=== PATIENT | female | born 1975 | race Caucasian/White ===

== ENCOUNTER 2018-03-06 00:23 | Inpatient (IN) | payer BC ==
[2018-03-06] VITALS (12 sets, daily range): BP systolic 130–161; BP diastolic 79–95
[~2018-03-06] VITALS: Ht 165.1 cm; Wt 87.0 kg
[~2018-03-06 00:23] MED LIST: ALBU8.5H8 IH; GUAI1TBM19 PO
[2018-03-06] MEDS ORDERED: normal saline 1000ML IV soln IVB ONE (00:35)
[2018-03-06] MEDS ORDERED: ketorolac trometh. 30mg/ml inj. IV ONE (01:15)
[2018-03-06 01:17] LABS: CLARITY,URINE CLOUDY (Clear); COLOR,URINE YELLOW (Yellow); GLUCOSE, URINE NEGATIVE (Neg); KETONES,URINE TRACE mg/dl (Neg); LEUKOCYTE ESTERASE ,URINE MODERATE (Neg); NITRITES, URINE NEGATIVE (Neg); OCCULT BLOOD,URINE MODERATE (Neg); PROTEIN,URINE 30 mg/dl (Neg); UROBILINOGEN,URINE 0.2 E.U/dL (0.2-1.0)
[2018-03-06 01:21] LABS: URINE HCG NEGATIVE (NEG)
[2018-03-06 01:22] LABS: UA COLLECTION TYPE VOIDED
[2018-03-06 01:51] LABS: ALANINE AMINOTRANSFERASE 21 U/L (12-78); ALBUMIN 3.6 G/DL (3.4-5.0); ALBUMIN/GLOBULIN RATIO 0.8 (1.1-1.5); ALKALINE PHOSPHATASE 77 IU/L (46-116); ANION GAP 9 (8-16); ASPARTATE AMINO TRANSFERASE 14 U/L (10-37); BILIRUBIN,TOTAL 0.5 MG/DL (0.1-1.0); BLOOD UREA NITROGEN 12 MG/DL (7-18); BUN/CREATININE RATIO 14.8 (6.6-38.0); CALCIUM 8.8 MG/DL (8.5-10.1); CHLORIDE 105 MMOL/L (99-107); CREATININE 0.81 MG/DL (0.40-0.90); GLUCOSE 124 MG/DL (70-104); LIPASE 79 U/L (73-393); POTASSIUM 3.5 MMOL/L (3.5-5.1); SODIUM 141 MMOL/L (135-145); TOTAL CARBON DIOXIDE 26.9 MMOL/L (24-32); eGFR 78 ML/MIN
[2018-03-06 02:50] LABS: BASOPHILS # (AUTO) 0.1 X10'3 (0-0.2); BASOPHILS % (AUTO) 0.5 % (0-1); EOSINOPHILS % (AUTO) 0.1 % (0-6); HEMATOCRIT 39.6 % (35.0-45.0); HEMOGLOBIN 14.1 g/dl (12.0-16.0); LYMPHOCYTES # (AUTO) 0.9 X10'3 (1.1-4.8); LYMPHOCYTES % (AUTO) 5.4 % (21-51); MEAN CORPUSCULAR HEMOGLOBIN 32.7 PG (27.0-31.0); MEAN CORPUSCULAR HGB CONC 35.5 % (33.0-36.5); MEAN CORPUSCULAR VOLUME 92.1 FL (78-98); MEAN PLATELET VOLUME 9.1 FL (7.4-10.4); MONOCYTES # (AUTO) 0.5 X10'3 (0-0.9); MONOCYTES % (AUTO) 2.7 % (2-12); NEUTROPHILS # (AUTO) 15.5 X10'3 (1.8-7.7); NEUTROPHILS % (AUTO) 91.3 % (42-75); PLATELET COUNT 147 X10'3 (140-440); RED CELL DISTRIBUTION WIDTH 12.3 % (11.5-14.5)
[2018-03-06 03:10] LABS: BACTERIA,URINE 3+ /HPF (Neg); MUCUS STRANDS MANY /LPF (Neg); SQUAMOUS EPITHELIAL CELL,UR MANY /LPF (FEW); WBC,URINE 30-50 /HPF (0-4)
[2018-03-06 03:56] LABS: TOTAL CELLS COUNTED 100
[2018-03-06 03:58] LABS: PLATELET ESTIMATE NORMAL
[2018-03-06] MEDS ORDERED: CefTRIAXone 2gm/D5W 50ml 50 ML IV ONE (04:10)
[2018-03-06 04:19] LABS: CLARITY,URINE CLEAR (Clear); COLOR,URINE YELLOW (Yellow); GLUCOSE, URINE NEGATIVE (Neg); KETONES,URINE TRACE mg/dl (Neg); LEUKOCYTE ESTERASE ,URINE TRACE (Neg); NITRITES, URINE NEGATIVE (Neg); OCCULT BLOOD,URINE TRACE-INTACT (Neg); PH,URINE 7.5 (4.8-8.0); PROTEIN,URINE NEGATIVE (Neg); UROBILINOGEN,URINE 0.2 E.U/dL (0.2-1.0)
[2018-03-06 04:20] LABS: UA COLLECTION TYPE CLN CATCH MIDSTREAM
[2018-03-06 04:30] LABS: MUCUS STRANDS MODERATE /LPF (Neg); SQUAMOUS EPITHELIAL CELL,UR MANY /LPF (FEW)
[2018-03-06 04:32] LABS: BACTERIA,URINE FEW /HPF (Neg)
[2018-03-06] MEDS ORDERED: morphine 4 MG/ML inj SYRINge IV ONE (04:45)
[2018-03-06] MEDS ORDERED: ondansetron/PF 4mg/2ml inj IV ONE (04:45)
[2018-03-06] MEDS ORDERED: normal saline 1000ml 1,000 ML IV SCH ×2 (04:45→05:31)
[2018-03-06] MEDS ORDERED: acetaminophen 325mg tablet PO PRN (05:35)
[2018-03-06] MEDS ORDERED: magnesium hydroxide 30ml (MOM) UD suspension PO PRN (05:35)
[2018-03-06] MEDS ORDERED: mag hydrox/Alum hydrox/simeth 30ml oral suspension PO PRN (05:35)
[2018-03-06] MEDS ORDERED: ondansetron/PF 4mg/2ml inj IV PRN ×2 (05:35→07:50)
[2018-03-06] MEDS ORDERED: LORazepam 2 mg/ml vial IV ONE (05:45)
[2018-03-06] MEDS ORDERED: BUPIVAcaine/PF 7.5mg/ml (0.75%) 10ml vial ONE (06:24)
[2018-03-06] MEDS ORDERED: sevoflurane 250ml liquid IH ONE (06:47)
[2018-03-06] MEDS ORDERED: rocuronium 10mg/ml inj IV ONE (06:50)
[2018-03-06] MEDS ORDERED: midazolam 2 mg/2 ml injection ONE (06:50)
[2018-03-06] MEDS ORDERED: propofol inj 20 ML IV ONE (06:50)
[2018-03-06] MEDS ORDERED: fentaNYL/PF 50MCG/1 ML 2ML syringe ONE (06:50)
[2018-03-06] MEDS ORDERED: dexamethasone sod phosphate 4mg/ml inj. ONE (07:44)
[2018-03-06] MEDS ORDERED: neostigmine methylsulfate 1 MG/ML 10ml vial ONE (07:44)
[2018-03-06] MEDS ORDERED: glycopyrrolate 0.2mg/ml inj ONE (07:44)
[2018-03-06] MEDS ORDERED: ondansetron/PF 4mg/2ml inj ONE (07:44)
[2018-03-06] MEDS ORDERED: meperidine/PF 25mg/ml syringe IV PRN ×3 (07:50)
[2018-03-06] MEDS ORDERED: ringers solution, lacted 1,000 ML IV SCH (07:50)
[2018-03-06] MEDS ORDERED: morphine 4 MG/ML inj SYRINge IV PRN ×2 (07:50)
[2018-03-06] MEDS ORDERED: proCHLORperazine 10 MG/2 ml inj IV PRN (07:50)
[2018-03-06] MEDS ORDERED: MORPHINE 2MG in 2ml NS syringe IV PRN (11:35)
[2018-03-06] MEDS ORDERED: morphine 2 MG/ML inj. syringe IV PRN (11:56)
[2018-03-07] MEDS ORDERED: CefTRIAXone/D5W-Rocephin 1gm 50 ML IV SCH (08:00)
== END 2018-03-06 14:30 | disposition home or self-care (01) | DRG 342 ==
LOC: ER 00:23 → ED HOLD 05:31 → SUR 3N 07:10
PROVIDERS: ADMIT Emergency Medicine; ATTEND Family Medicine
PROC: 0DTJ4ZZ Resection of Appendix, Percutaneous Endoscopic Approach (ICD-10-PCS; principal; 2018-03-06 06:47)
DX: K35.80 Unspecified acute appendicitis (principal); N39.0 Urinary tract infection, site not specified; I10 Essential (primary) hypertension; N83.202 Unspecified ovarian cyst, left side; Z96.0 Presence of urogenital implants; Z88.1 Allergy status to other antibiotic agents; Z88.2 Allergy status to sulfonamides; Z79.899 Other long term (current) drug therapy
CPT/HCPCS: 36415; 74176; 80053; 81001; 81025; 83690; 85025; 96361; 96365; 96375; 99285; A4315; A7000; J0696; J1100; J1885; J2060; J2250; J2270; J2274; J2405; J2704; J2710; J3010; J3490; J7030; J7120

== ENCOUNTER 2018-07-01 06:08 | Emergency (ER) | payer BC ==
[~2018-07-01] VITALS: Ht 162.6 cm; Wt 90.0 kg
[2018-07-01] MEDS ORDERED: ibuprofen tablet 400 MG TABLET PO ONE (06:45)
[2018-07-01 06:53] VITALS: BP 168/110
== END 2018-07-01 06:57 | disposition home or self-care (01) ==
LOC: ER 06:08
DX: S62.617A Displaced fracture of proximal phalanx of left little finger, initial encounter for closed fracture (principal); Z98.890 Other specified postprocedural states; Z88.1 Allergy status to other antibiotic agents; W01.198A Fall on same level from slipping, tripping and stumbling with subsequent striking against other object, initial encounter; Y93.89 Activity, other specified; Y92.89 Other specified places as the place of occurrence of the external cause; Y99.9 Unspecified external cause status
CPT/HCPCS: 29125; 73130; 99284

== ENCOUNTER 2018-07-08 10:59 | Outpatient (CLI) | payer BC ==
[2018-07-08 10:58] VITALS: BP 171/121
== END 2018-07-08 12:05 | disposition home or self-care (01) ==
LOC: ORTHO 10:59
PROVIDERS: ATTEND Nurse Practitioner Family
DX: S62.647A Nondisplaced fracture of proximal phalanx of left little finger, initial encounter for closed fracture (principal); I10 Essential (primary) hypertension; Z88.2 Allergy status to sulfonamides; W22.8XXA Striking against or struck by other objects, initial encounter; Y93.89 Activity, other specified; Y92.89 Other specified places as the place of occurrence of the external cause; Y99.8 Other external cause status
CPT/HCPCS: 99213

== ENCOUNTER 2018-07-22 13:35 | Outpatient (CLI) | payer BC ==
[2018-07-22 13:35] VITALS: BP 163/106
== END 2018-07-22 13:58 | disposition home or self-care (01) ==
LOC: ORTHO 13:35
PROVIDERS: ATTEND Nurse Practitioner Family
DX: S62.647D Nondisplaced fracture of proximal phalanx of left little finger, subsequent encounter for fracture with routine healing (principal); I10 Essential (primary) hypertension; Z88.2 Allergy status to sulfonamides; Z88.1 Allergy status to other antibiotic agents; W22.8XXD Striking against or struck by other objects, subsequent encounter
CPT/HCPCS: 73130; 99213

== ENCOUNTER 2020-01-04 22:32 | Emergency (ER) | payer BC ==
[~2020-01-04] VITALS: Ht 162.6 cm; Wt 95.0 kg
[2020-01-04] MEDS ORDERED: silver nitrate applicator stick TP ONE ×3 (23:30→23:45)
--- NOTE | 2020-01-05 00:07 | NUR ---
CHAPERONED DEO BURKS FOR PT VAGINAL EXAM
[2020-01-05 00:53] VITALS: BP 154/95
== END 2020-01-05 00:39 | disposition short-term general hospital (02) ==
LOC: ER 22:33
DX: N93.9 Abnormal uterine and vaginal bleeding, unspecified (principal); I10 Essential (primary) hypertension; N99.820 Postprocedural hemorrhage of a genitourinary system organ or structure following a genitourinary system procedure; Z90.49 Acquired absence of other specified parts of digestive tract; Z98.890 Other specified postprocedural states; Z72.89 Other problems related to lifestyle; Z88.2 Allergy status to sulfonamides; Z88.8 Allergy status to other drugs, medicaments and biological substances
CPT/HCPCS: 99281; 99285

== ENCOUNTER 2024-03-21 07:38 | Emergency (ER) | payer BC ==
[~2024-03-21] VITALS: Ht 162.6 cm; Wt 89.2 kg
[2024-03-21 07:46] VITALS: TEMP 98.1
[2024-03-21 08:08] LABS: BILIRUBIN,URINE NEGATIVE (Neg); CLARITY,URINE SLIGHTLY CLOUDY (Clear); COLOR,URINE YELLOW (Yellow); GLUCOSE, URINE 500 mg/dl (Neg); KETONES,URINE NEGATIVE (Neg); LEUKOCYTE ESTERASE ,URINE NEGATIVE (Neg); NITRITES, URINE NEGATIVE (Neg); OCCULT BLOOD,URINE SMALL (Neg); PROTEIN,URINE NEGATIVE (Neg); UROBILINOGEN,URINE 0.2 E.U/dL (0.2-1.0)
[2024-03-21 08:09] LABS: URINE HCG NEGATIVE (NEG)
[2024-03-21 08:11] LABS: UA COLLECTION TYPE CLN CATCH MIDSTREAM
[2024-03-21 08:22] LABS: SQUAMOUS EPITHELIAL CELL,UR MANY /LPF (FEW)
[2024-03-21 08:23] LABS: BACTERIA,URINE 1+ /HPF (Neg); MUCUS STRANDS FEW /LPF (Neg)
[2024-03-21 08:54] LABS: BASOPHILS % (AUTO) 0.7 % (0-1); EOSINOPHILS # (AUTO) 0.3 X10'3 (0-0.9); EOSINOPHILS % (AUTO) 4.9 % (0-6); HEMATOCRIT 38.7 % (35.0-45.0); HEMOGLOBIN 13.2 g/dl (12.0-16.0); LYMPHOCYTES # (AUTO) 2.2 X10'3 (1.1-4.8); LYMPHOCYTES % (AUTO) 33.4 % (21-51); MEAN CORPUSCULAR HGB CONC 34.1 g/dL (33.0-36.5); MEAN CORPUSCULAR VOLUME 91.1 FL (78-98); MEAN PLATELET VOLUME 7.8 FL (7.4-10.4); MONOCYTES # (AUTO) 0.6 X10'3 (0-0.9); MONOCYTES % (AUTO) 8.7 % (2-12); NEUTROPHILS # (AUTO) 3.4 X10'3 (1.8-7.7); NEUTROPHILS % (AUTO) 52.3 % (42-75); PLATELET COUNT 270 X10'3 (140-440); RED BLOOD COUNT 4.25 X10'6 (4.20-5.60); RED CELL DISTRIBUTION WIDTH 13.5 % (11.5-14.5); WHITE BLOOD COUNT 6.5 X10'3 (4.5-11.0)
[2024-03-21] MEDS: ketorolac trometh. 30mg/ml inj. IM ONE (08:58)
[2024-03-21 09:09] LABS: ALANINE AMINOTRANSFERASE 25 U/L (12-78); ALBUMIN 3.3 G/DL (3.4-5.0); ALBUMIN/GLOBULIN RATIO 0.7 (1.1-1.5); ALKALINE PHOSPHATASE 65 IU/L (46-116); ANION GAP 5 (8-16); ASPARTATE AMINO TRANSFERASE 15 U/L (10-37); BILIRUBIN,TOTAL 0.7 MG/DL (0.1-1.0); BLOOD UREA NITROGEN 23 MG/DL (7-18); BUN/CREATININE RATIO 27.1 (10.0-20.0); CALCIUM 8.7 MG/DL (8.5-10.1); CHLORIDE 102 MMOL/L (99-107); CREATININE 0.85 MG/DL (0.40-0.90); GLUCOSE 93 MG/DL (70-104); SODIUM 139 MMOL/L (135-145); TOTAL CARBON DIOXIDE 31.8 MMOL/L (24-32); TOTAL PROTEIN 7.9 G/DL (6.4-8.2); eCRCL 71 ML/MIN; eGFR 72 ML/MIN
[2024-03-21 09:23] LABS: POTASSIUM 2.8 MMOL/L (3.5-5.1)
[2024-03-21 11:01] VITALS: BP 129/83; PULSE 85; RESP 18; O2SAT 99
== END 2024-03-21 11:05 | disposition home or self-care (01) ==
LOC: ER 07:39
DX: R10.9 Unspecified abdominal pain (principal); E87.6 Hypokalemia; I10 Essential (primary) hypertension; Z88.2 Allergy status to sulfonamides; Z98.890 Other specified postprocedural states
CPT/HCPCS: 36415; 74176; 80053; 81001; 81025; 85025; 96372; 99285; J1885

== ENCOUNTER 2024-05-11 22:03 | Emergency (ER) | payer BC ==
[~2024-05-11] VITALS: Ht 162.6 cm; Wt 88.5 kg
[2024-05-11 22:07] VITALS: BP 162/97; PULSE 80; RESP 16; TEMP 98.4; O2SAT 99
[2024-05-11] MEDS ORDERED: AMOX-117 PO (22:14)
[2024-05-11] MEDS: TETanus/Pertussis (Acell)/Diphther VAC/PF (Tdap-Adult) 0.5ml syringe IMVAC ONE (22:58)
== END 2024-05-11 23:03 | disposition home or self-care (01) ==
LOC: ER 22:04
DX: S61.031A Puncture wound without foreign body of right thumb without damage to nail, initial encounter (principal); I10 Essential (primary) hypertension; Z88.2 Allergy status to sulfonamides; Z98.890 Other specified postprocedural states; W55.01XA Bitten by cat, initial encounter; Y93.89 Activity, other specified; Y92.89 Other specified places as the place of occurrence of the external cause; Y99.8 Other external cause status
CPT/HCPCS: 90471; 90715; 99283